=== PATIENT | female | born 1960 | race Caucasian/White ===

== ENCOUNTER 2018-12-24 04:26 | Emergency (ER) | payer MEDICAID ==
[~2018-12-24] VITALS: Ht 152.4 cm; Wt 81.8 kg
[2018-12-24] MEDS ORDERED: ondansetron/PF 4mg/2ml inj IV ONE (05:35)
[2018-12-24] MEDS ORDERED: morphine 4 MG/ML inj SYRINge IV ONE ×3 (05:35→07:55)
[2018-12-24] MEDS ORDERED: normal saline 1000ML IV soln IVB ONE (05:35)
[2018-12-24 06:06] LABS: URINE HCG NEGATIVE (NEG)
[2018-12-24 06:13] LABS: CLARITY,URINE SLIGHTLY CLOUDY (Clear); COLOR,URINE YELLOW (Yellow); GLUCOSE, URINE NEGATIVE (Neg); KETONES,URINE NEGATIVE (Neg); LEUKOCYTE ESTERASE ,URINE MODERATE (Neg); NITRITES, URINE NEGATIVE (Neg); OCCULT BLOOD,URINE SMALL (Neg); PH,URINE 5.5 (4.8-8.0); PROTEIN,URINE NEGATIVE (Neg); UROBILINOGEN,URINE 0.2 E.U/dL (0.2-1.0)
[2018-12-24 06:15] LABS: UA COLLECTION TYPE CLN CATCH MIDSTREAM
[2018-12-24 06:16] LABS: ALANINE AMINOTRANSFERASE 91 U/L (12-78); ALBUMIN 4.3 G/DL (3.4-5.0); ALKALINE PHOSPHATASE 89 IU/L (46-116); ANION GAP 12 (8-16); BILIRUBIN,TOTAL 0.4 MG/DL (0.1-1.0); BLOOD UREA NITROGEN 15 MG/DL (7-18); CALCIUM 10.5 MG/DL (8.5-10.1); CHLORIDE 102 MMOL/L (99-107); CREATININE 0.75 MG/DL (0.40-0.90); GLUCOSE 132 MG/DL (70-104); LIPASE 180 U/L (73-393); MAGNESIUM 1.9 MG/DL (1.5-2.4); POTASSIUM 4.3 MMOL/L (3.5-5.1); SODIUM 139 MMOL/L (135-145); TOTAL CARBON DIOXIDE 25.5 MMOL/L (24-32); TOTAL PROTEIN 8.5 G/DL (6.4-8.2); eGFR 79 ML/MIN
[2018-12-24 06:17] LABS: ASPARTATE AMINO TRANSFERASE 48 U/L (10-37)
[2018-12-24 06:25] LABS: BACTERIA,URINE 1+ /HPF (Neg); MUCUS STRANDS NONE SEEN /LPF (Neg); RENAL CELLS, URINE FEW /HPF; SQUAMOUS EPITHELIAL CELL,UR MODERATE /LPF (FEW); WBC CLUMPS,URINE FEW /HPF (NEGATIVE); WBC,URINE 20-30 /HPF (0-4)
--- NOTE | 2018-12-24 07:02 | NUR ---
INITIATED A NEW IV TO RIGHT FOREARM NEED TO DRAW CBC LABS AGAIN PER LAB, REMOVED IV FROM LEFT ARM PLACED DR LUPE CHANG AT PT BEDSIDE DURING THIS TIME, RECIEVED VERBAL ORDER FOR ANOTHER LITER BOLUS OF NS.
[2018-12-24] MEDS ORDERED: normal saline 1000ml 1,000 ML IV ONE (07:05)
[2018-12-24 07:10] LABS: BASOPHILS % (AUTO) 0.4 % (0-1); EOSINOPHILS % (AUTO) 0.4 % (0-6); HEMATOCRIT 41.6 % (35.0-45.0); LYMPHOCYTES # (AUTO) 1.7 X10'3 (1.1-4.8); LYMPHOCYTES % (AUTO) 21.2 % (21-51); MEAN CORPUSCULAR HGB CONC 33.7 g/dL (33.0-36.5); MEAN CORPUSCULAR VOLUME 91.9 FL (78-98); MEAN PLATELET VOLUME 7.7 FL (7.4-10.4); MONOCYTES # (AUTO) 0.3 X10'3 (0-0.9); MONOCYTES % (AUTO) 3.2 % (2-12); NEUTROPHILS # (AUTO) 5.8 X10'3 (1.8-7.7); NEUTROPHILS % (AUTO) 74.8 % (42-75); PLATELET COUNT 315 X10'3 (140-440); RED BLOOD COUNT 4.53 X10'6 (4.20-5.60); RED CELL DISTRIBUTION WIDTH 13.8 % (11.5-14.5); WHITE BLOOD COUNT 7.8 X10'3 (4.5-11.0)
[2018-12-24 07:57] VITALS: BP 182/80
== END 2018-12-24 08:22 | disposition home or self-care (01) ==
LOC: ER 04:27
DX: R10.11 Right upper quadrant pain (principal); R11.10 Vomiting, unspecified; Z90.49 Acquired absence of other specified parts of digestive tract; Z91.018 Allergy to other foods
CPT/HCPCS: 36415; 80053; 81001; 81025; 83690; 83735; 85025; 85610; 87088; 96361; 96374; 96375; 96376; 99283; J2270; J2405; J7030

== ENCOUNTER 2019-04-05 17:55 | Emergency (ER) | payer MEDICAID ==
[~2019-04-05] VITALS: Ht 152.4 cm; Wt 77.0 kg
[2019-04-05 18:47] LABS: BASOPHILS % (AUTO) 0.5 % (0-1); EOSINOPHILS # (AUTO) 0.1 X10'3 (0-0.9); EOSINOPHILS % (AUTO) 0.7 % (0-6); HEMATOCRIT 41.1 % (35.0-45.0); HEMOGLOBIN 14.3 g/dl (12.0-16.0); LYMPHOCYTES # (AUTO) 4.1 X10'3 (1.1-4.8); LYMPHOCYTES % (AUTO) 42.9 % (21-51); MEAN CORPUSCULAR HEMOGLOBIN 31.5 PG (27.0-31.0); MEAN CORPUSCULAR HGB CONC 34.8 g/dL (33.0-36.5); MEAN CORPUSCULAR VOLUME 90.5 FL (78-98); MEAN PLATELET VOLUME 7.9 FL (7.4-10.4); MONOCYTES # (AUTO) 0.4 X10'3 (0-0.9); MONOCYTES % (AUTO) 4.1 % (2-12); NEUTROPHILS % (AUTO) 51.8 % (42-75); PLATELET COUNT 385 X10'3 (140-440); RED BLOOD COUNT 4.54 X10'6 (4.20-5.60); RED CELL DISTRIBUTION WIDTH 13.8 % (11.5-14.5); WHITE BLOOD COUNT 9.6 X10'3 (4.5-11.0)
--- NOTE | 2019-04-05 18:50 | NUR ---
PT AMBULATORY TO RESTROOM FOR URINE SAMPLE
[2019-04-05 18:55] LABS: ALANINE AMINOTRANSFERASE 232 U/L (12-78); ALBUMIN 4.1 G/DL (3.4-5.0); ALKALINE PHOSPHATASE 104 IU/L (46-116); ANION GAP 12 (8-16); ASPARTATE AMINO TRANSFERASE 334 U/L (10-37); BILIRUBIN,TOTAL 0.6 MG/DL (0.1-1.0); BLOOD UREA NITROGEN 14 MG/DL (7-18); BUN/CREATININE RATIO 16.1 (6.6-38.0); CALCIUM 9.2 MG/DL (8.5-10.1); CHLORIDE 101 MMOL/L (99-107); CREATININE 0.87 MG/DL (0.40-0.90); GLUCOSE 124 MG/DL (70-104); POTASSIUM 3.3 MMOL/L (3.5-5.1); SODIUM 137 MMOL/L (135-145); TOTAL CARBON DIOXIDE 24.3 MMOL/L (24-32); TOTAL PROTEIN 8.4 G/DL (6.4-8.2); eGFR 66 ML/MIN
[2019-04-05 19:18] LABS: CLARITY,URINE SLIGHTLY CLOUDY (Clear); COLOR,URINE YELLOW (Yellow); GLUCOSE, URINE NEGATIVE (Neg); KETONES,URINE NEGATIVE (Neg); LEUKOCYTE ESTERASE ,URINE MODERATE (Neg); NITRITES, URINE NEGATIVE (Neg); OCCULT BLOOD,URINE NEGATIVE (Neg); PROTEIN,URINE NEGATIVE (Neg); UROBILINOGEN,URINE 0.2 E.U/dL (0.2-1.0)
[2019-04-05 19:25] LABS: UA COLLECTION TYPE CLN CATCH MIDSTREAM
[2019-04-05] MEDS ORDERED: normal saline 1000ML IV soln IVB ONE (19:35)
[2019-04-05] MEDS ORDERED: ondansetron/PF 4mg/2ml inj IV ONE (19:35)
[2019-04-05] MEDS ORDERED: morphine 4 MG/ML inj SYRINge IV PRN (19:35)
[2019-04-05 19:38] LABS: SQUAMOUS EPITHELIAL CELL,UR MODERATE /LPF (FEW)
[2019-04-05 19:39] LABS: WBC,URINE 20-30 /HPF (0-4)
[2019-04-05 19:40] LABS: BACTERIA,URINE FEW /HPF (Neg); TRANSITIONAL EPI CELLS,URINE FEW /HPF; WBC CLUMPS,URINE MODERATE /HPF (NEGATIVE)
[2019-04-05 19:46] LABS: LIPASE 182 U/L (73-393)
[2019-04-05] MEDS ORDERED: CefTRIAXone 2gm/D5W 50ml 50 ML IV ONE (21:00)
[2019-04-05] MEDS ORDERED: CEPH250T PO (21:01)
[2019-04-05 21:46] VITALS: BP 138/77
== END 2019-04-05 21:42 | disposition home or self-care (01) ==
LOC: ER 17:56
DX: K76.0 Fatty (change of) liver, not elsewhere classified (principal); N39.0 Urinary tract infection, site not specified; R11.10 Vomiting, unspecified; Z90.49 Acquired absence of other specified parts of digestive tract; Z91.018 Allergy to other foods
CPT/HCPCS: 36415; 74176; 80053; 81001; 83690; 85025; 87088; 96365; 96375; 99284; J0696; J2270; J2405; J7030